=== PATIENT | female | born 2005 | race Caucasian/White ===

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

== ENCOUNTER 2023-11-11 16:36 | Observation (INO) | payer OTHER ==
[~2023-11-11] VITALS: Ht 172.7 cm; Wt 101.3 kg
[2023-11-11 16:54] LABS: Hematocrit 47.8 % (33.0-51.0); Mean Corpuscular HGB 30.7 pg (26.0-34.0); Mean Corpuscular HGB Conc 33.5 g/dL (31.5-36.5); Mean Corpuscular Volume 92 fL (80-100); Mean Platelet Volume 9.7 fL (9.1-12.4); Platelet Count 283 K/mm3 (150-400); RDW Coefficient Variation 12.4 % (11.7-14.2); RDW Standard Deviation 41.8 fL (35.1-46.3); Red Blood Cell Count 5.22 M/mm3 (3.80-5.20); White Blood Cell Count 24.87 K/mm3 (4.00-11.30)
[2023-11-11 17:15] LABS: Albumin, Blood 4.1 g/dL (3.4-5.0); Bilirubin, Total 0.8 mg/dL (0.1-1.0); Bun/Creatinine Ratio 14.1 (12.0-20.0); Calcium, Blood 9.2 mg/dL (8.5-10.1); Creatinine, Blood 0.85 mg/dL (0.40-1.00); Globulin, Blood 4.2 g/dL (2.2-4.0); Potassium, Blood 3.7 mmol/L (3.5-5.5); Total Protein, Blood 8.3 g/dL (6.4-8.2)
[2023-11-11 17:20] LABS: BAND PERCENT MAN 20 % (0-8); BASOPHILS PERCENT MAN 0 % (0-2); EOSINOPHILS PERCENT MAN 0 % (0-6); LYMPHOCYTES ABSOLUTE MAN 1.24 K/mm3 (0.84-5.20); LYMPHOCYTES PERCENT MAN 5 % (21-46); MONOCYTES ABSOLUTE MAN 0.99 K/mm3 (0.16-1.47); MONOCYTES PERCENT MAN 4 % (4-13); NEUTROPHILS ABSOLUTE MAN 22.63 K/mm3 (1.96-9.15); SEG NEUTROPHILS PERCENT MAN 71 % (41-73); TOTAL CELLS COUNTED 100
[2023-11-11] MEDS ORDERED: FentaNYL Citrate 50 MCG/ML 2 ML Injection IV ONE ×2 (19:20→21:00)
[2023-11-11] MEDS ORDERED: Piperacillin/Tazobactam Sod 4.5 GM in NS 100 ML IV ONE (19:50)
[2023-11-11] MEDS ORDERED: FentaNYL Citrate 50 MCG/ML 2 ML Injection IV PRN (21:00)
[2023-11-11] MEDS ORDERED: Lactated Ringer's 1,000 ML IV SCH (21:00)
[2023-11-11] MEDS ORDERED: Metoclopramide HCl 5MG / ML 2ML Vial IV PRN (21:00)
[2023-11-11] MEDS ORDERED: Ondansetron HCl 2 MG / ML 2ML Vial IV PRN (21:00)
[2023-11-11 22:59] VITALS: BP 123/85
[2023-11-11] MEDS ORDERED: NS 250 ML IV PRN (23:45)
[2023-11-12] VITALS (11 sets, daily range): BP systolic 102–145; BP diastolic 58–95
[2023-11-12] MEDS ORDERED: Piperacillin/Tazobactam Sod 4.5 GM in NS 100 ML IV SCH
[2023-11-12] MEDS ORDERED: Piperacillin/Tazobactam Sod 3.375 GM in NS 100 ML IV SCH
--- NOTE | 2023-11-12 | NUR ---
ARRIVAL NOTE PT ARRIVED TO UNIT, AMBULATED INDEPENDENTLY TO BATHROOM AND VOIDED. VSS. MEDICATED FOR PAIN. MOM AT BEDSIDE. INSTRUCTED PT REGARDING CALL LIGHT.
[2023-11-12 00:03] LABS: Source, Urine Clean Catch
[2023-11-12] MEDS ORDERED: Ketorolac Tromethamine 15mg Vial IV PRN (00:10)
[2023-11-12 00:12] LABS: Bilirubin, Urine Neg (Neg); Blood, Urine 2+ (Neg); Glucose Qualitative, Urine Neg (Neg); Ketones, Urine 1+ (Neg); Leukocyte Esterase, Urine 1+ (Neg); Nitrite, Urine Neg (Neg); Protein, Urine 2+ (Neg); Urobilinogen, Urine NORM (Normal)
[2023-11-12 00:18] LABS: Appearance, Urine Clear (Clear); Color, Urine Yellow (P-Yellow)
[2023-11-12 00:19] LABS: Bacteria Few /hpf; Red Blood Cells, Urine 0-2 /hpf (0-2); Squamous Epithelial Cells Few /hpf (Few); White Blood Cells, Urine 0-2 /hpf (0-5)
--- NOTE | 2023-11-12 04:31 | NUR ---
SHIFT SUMMARY PT IS A/O AND IND IN ROOM. IV FLUIDS AND ABX GIVEN PER EMAR. PAIN MANAGED WITH IV PAIN MEDS. NPO SINCE 0000 FOR PROBABLE SURGERY IN AM. PT ABLE TO REST MOST OF SHIFT. NO COMPLAINTS OF N/V THIS SHIFT.VSS. USING CALL LIGHT APPROPRIATELY.
[2023-11-12] MEDS ORDERED: Lactated Ringer's 1,000 ML IV ONE (08:05)
[2023-11-12] MEDS ORDERED: Bupivacaine 0.5% HCl 5 MG/ML 30MLVIAL ONE (08:48)
[2023-11-12] MEDS ORDERED: Midazolam HCl 1MG / ML 2ML Vial ONE (08:51)
[2023-11-12] MEDS ORDERED: FentaNYL Citrate 50 MCG/ML 2 ML Injection ONE (08:52)
[2023-11-12] MEDS ORDERED: propofoL 20 ML IV ONE (08:52)
[2023-11-12] MEDS ORDERED: Ondansetron HCl 2 MG / ML 2ML Vial ONE (08:58)
[2023-11-12] MEDS ORDERED: Rocuronium Bromide 10 MG/ML 5ML Injection IV ONE (08:58)
[2023-11-12] MEDS ORDERED: Dexamethasone Sod Phos 10 MG/ML 1ML VIAL ONE (08:58)
--- NOTE | 2023-11-12 09:22 | NUR ---
11/12/23 0922 Brittany Fernando PT ON SCHEDULED ANTIBIOTICS AND RECIEVED PRIOR TO OR ARRIVAL.
[2023-11-12] MEDS ORDERED: Sugammadex Sodium 200 MG/2ML SDV (100 MG/ML) ONE (09:31)
[2023-11-12] MEDS ORDERED: OxyCODONE HCL 5 MG TAB PO PRN (09:45)
[2023-11-12] MEDS ORDERED: ACET325 PO (14:01)
[2023-11-12] MEDS ORDERED: ONDA4ODT MM (14:02)
[2023-11-12] MEDS ORDERED: IBUP600 PO (14:02)
--- NOTE | 2023-11-12 14:21 | NUR ---
DISCHARGE SUMMARY PT A&OX4, VSS/RA, MÓNICA PO, VOIDING, AMB INDEPENDENTLY/DRESSED SELF, DENIES PAIN, IV DC'D. DC INS PROVIDED TO PT AND FATHER; REP UNDERSTANDING THOSE INSTRUCTIONS. LEFT FLOOR WITH ALL PERSONAL POSSESSIONS INCLUDING DC PACKET; SCRIPT FAXED TO [facility].
== END 2023-11-12 14:20 | disposition home or self-care (01) ==
LOC: ER 16:36 → SURS 16:37 → ER 20:58 → SURS 20:58
PROVIDERS: Physician Assistant; Surgery; ADMIT Internal Medicine
PROC: 0DTJ0ZZ Resection of Appendix, Open Approach (ICD-10-PCS; principal; 2023-11-12 09:00)
DX: K35.80 Unspecified acute appendicitis (principal)
CPT/HCPCS: 74177; 80053; 81001; 84703; 85025; 88304; 96365-59; 96375; 99285-25; J1100; J1885; J2250; J2405; J2543; J2704; J3010; J7050; J7120; Q9967